=== PATIENT | female | born 1955 | race Asian ===

== ENCOUNTER 2017-06-07 07:44 | Day surgery (SDC) | payer OTHER ==
[~2017-06-07] VITALS: Ht 152.4 cm; Wt 48.5 kg
[2017-06-07 08:13] VITALS: Ht 152.4 cm; Wt 48.5 kg
[2017-06-07] MEDS ORDERED: PLAN450T2 PO (08:17)
[2017-06-07] MEDS ORDERED: FISH OIL PO (08:17)
[2017-06-07 08:29] VITALS: BP 135/72; PULSE 68; RESP 18
--- NOTE | 2017-06-07 09:11 | OPPN ---
Date/Time of Note Date/Time of Note DATE: 06/07/17 TIME: 09:07 Operative Report Preoperative Diagnosis Screening colonoscopy Postoperative Diagnosis Internal hemorrhoids Diverticulosis of the colon Small sigmoid colon polyp was removed Operation/Procedure Performed Colonoscopy and biopsy Anesthesia: other Estimated blood loss: none Specimens Sigmoid colon biopsy Complications: None JOMAR HUDSON MD Jun 07, 2017 09:11
[2017-06-07] MEDS ORDERED: FENTAnyl 50 MCG/ML VIAL ONE (09:25)
[2017-06-07] MEDS ORDERED: MIDAZOLAM 1 MG/ML 2 ML INJ ONE (09:25)
--- NOTE | 2017-06-07 11:05 | GILP ---
DATE OF PROCEDURE: 06/07/2017 PROCEDURE PERFORMED: Colonoscopy and biopsy. SURGEON: Dr. Pandey. PREOPERATIVE DIAGNOSIS: Screening colonoscopy. POSTOPERATIVE DIAGNOSES: 1. Colonoscopy all the way to the cecum. 2. A small sigmoid colon polyp was removed using the biopsy forceps. 3. Diverticulosis of the colon. 4. Internal hemorrhoids. INDICATION: Ms. Alyx Jackson is a 62-year-old female patient who was scheduled for screening colonoscopy. The procedure and possible complications were well explained to the patient. She understood and consented to the procedure. DESCRIPTION OF PROCEDURE: Under influence of fentanyl and Versed, the colonoscope was carefully introduced in the rectum and under direct vision it was advanced all the way to the cecum. FINDINGS: The patient had a small sigmoid colon polyp and it was removed using the biopsy forceps. She had diverticulosis of the colon. She also had internal hemorrhoids. She tolerated the procedure very well. There was no complication from the procedure. At the end of procedure, she was awake with stable vital signs and she was discharged home in the care of her family. IMPRESSION: 1. Colonoscopy all the way to the cecum. 2. Small sigmoid colon polyp was removed using the biopsy forceps. 3. Diverticulosis of the colon. 4. Internal hemorrhoids. PLAN: Await histopathology report. Next screening colonoscopy in 10 years. Dictated By: MD NEERAJ Michael/batool/alicia /Document#: [id number] CC: Jose David Pandey MD;*EndCC*
== END 2017-06-07 10:37 | disposition home or self-care (01) ==
LOC: GIL 07:44
PROVIDERS: ATTEND Internal Medicine Gastroenterology
DX: Z12.11 Encounter for screening for malignant neoplasm of colon (principal); D12.5 Benign neoplasm of sigmoid colon; K57.90 Diverticulosis of intestine, part unspecified, without perforation or abscess without bleeding; K64.8 Other hemorrhoids
CPT/HCPCS: 45380; 88305; J2250; J3010; Z7610